=== PATIENT | male | born 1985 | race Two or more races ===

== ENCOUNTER 2021-05-10 06:23 | Emergency (ER) | payer SELFPAY ==
[~2021-05-10] VITALS: Ht 165.1 cm; Wt 83.0 kg
--- NOTE | 2021-05-10 06:36 | PHYS DOC ---
Past Medical History Past Medical History: Hypertension General Adult HPI: HPI: Patient is a 35 year old male who presents with several days of sore throat. He denies cough, dyspnea, headache, nausea vomiting. He had fever for 1 day, about 4 or 5 days ago, but this is since resolved. He was seen at an urgent care in [facility] yesterday and was prescribed what he believes is penicillin. He reports that his sore throat is not any better after 1 day of antibiotics. He has not taken anything for pain since yesterday. He is not vaccinated against Covid. He denies any known sick contacts. He is not having any difficulty with swallowing, eating or drinking. He is requesting a strep swab and a Covid swab at this time. Review of Systems: Review of Systems: Constitutional: 1 day of fever, since resolved. No chills. Eyes: Denies change in visual acuity. [] HENT: Sore throat. Denies rhinorrhea, sneezing or nasal congestion. Denies otalgia. Respiratory: Denies cough or shortness of breath. [] Cardiovascular: Denies chest pain or edema. [] GI: Denies abdominal pain, nausea, vomiting, denies bowel habit changes Musculoskeletal: Denies back pain or joint pain. [] Integument: Denies rash. [] Neurologic: Denies headache, focal weakness or sensory changes. [] Psychiatric: Denies depression or anxiety. [] Heart Score: C/O Chest Pain: No Risk Factors: Risk Factors: DM, Current or recent (<one month) smoker, HTN, HLP, family history of CAD, obesity. Risk Scores: Score 0 - 3: 2.5% MACE over next 6 weeks - Discharge Home Score 4 - 6: 20.3% MACE over next 6 weeks - Admit for Clinical Observation Score 7 - 10: 72.7% MACE over next 6 weeks - Early Invasive Strategies Physical Exam: PE: Constitutional: Well developed, well nourished, no acute distress, non-toxic appearance. [] HENT: Normocephalic, atraumatic, bilateral external ears normal, oropharynx is patent, clear, minimal erythema, no exudate, uvula midline, no edema or swelling, no facial or oral rash, no facial oral swelling, no drooling, no trismus, bilateral TMs are clear. He is drooling secretions well. Voice is clear. Eyes: PERRL, EOMI, conjunctiva normal, no discharge. [] Neck: Normal range of motion, no tenderness, supple, no stridor. [] Cardiovascular:Heart rate regular rhythm, no murmur [] Lungs & Thorax: Bilateral breath sounds clear to auscultation [] Skin: Warm, dry, no erythema, no rash. [] Back: Full range of motion Extremities: No limb deformity, no peripheral edema Neurologic: Alert and oriented X 3, normal motor function, ambulatory with a steady gait, speech clear and fluent Psychologic: Affect normal, judgement normal, mood normal. [] EKG: EKG: [] Radiology/Procedures: Radiology/Procedures: [] Course & Med Decision Making: Course & Med Decision Making Pertinent Labs and Imaging studies reviewed. (See chart for details) P.o. ibuprofen is given for pain. I discussed the findings, differential diagnosis and plan of care with the patient. He has significantly elevated blood pressure here, and he admits that he has been told multiple times that he has high blood pressure but he has never gone to see a primary care physician. I explained that he must see a primary care physician for follow-up. I explained the dangers of chronically uncontrolled hypertension, which may lead to long-term consequences and end organ damage. He is given outpatient resources for follow-up. No indication for further ED imaging, labs or invasive exams at this time. Return precautions are given. I explained his positive Covid assay results, and I instructed him to go home and self isolate. He is to notify all contacts, including those at work, and they are to quarantine. I discussed home care instructions for Covid infection. I told him he may stop taking the antibiotic he was prescribed yesterday, as this will not be a useful medication and treatment of a viral illness such as COVID-19. He feels comfortable with the plan of care. Strict return precautions are given. Cristel Disclaimer: Cristel Disclaimer: This electronic medical record was generated, in whole or in part, using a voice recognition dictation system. Departure Departure Impression: Primary Impression: COVID-19 virus infection Disposition: HOME / SELF CARE / HOMELESS Condition: STABLE Referrals: NO PCP (PCP) Patient Instructions: Sore Throat, [id number] Additional Instructions: Definicin Se le realiz la prueba de deteccin del COVID-19 o se le diagnostic dicha enfermedad. Es bubba infeccin ocasionada por un nuevo tipo de coronavirus. En la mayora de los casos, el COVID-19 provoca sntomas similares a los del resfriado. En algunas personas, puede ocasionar sntomas ms graves, fuentes problemas respiratorios. No existe un tratamiento para el virus COVID-19. El cuerpo elimina la infeccin con el tiempo. El cuidado personal ayuda a aliviar el malestar. Pasos que debe seguir 1. Cuidados personales Descanse cuando sea necesario. Los hbitos saludables pueden ayudarlo a sentirse mejor. Algunas medidas para lograr cambios incluyen lo siguiente: - Elija alimentos saludables, fuentes frutas y verduras. Harika abundante cantidad de agua hayley todo el da. - Duerma kodi por la noche. - Si fuma, intente no hacerlo. [place] ayudar a mejorar la respiracin. - Evite el alcohol. 2. Mantenga sanos a los dems El virus puede contagiarse a otras personas. Cada vez que estornuda o tose, se liberan gotitas. Las gotitas pueden entrar en la boca, la nariz o los ojos de las personas que se encuentran cerca de usted y ocasionar la infeccin. Para reducir las probabilidades de contagiar el virus COVID-19 a otros, tenga en cuenta lo siguiente: - Qudese en casa el tiempo que el mdico se lo indique. Es posible que deba quedarse en casa hasta que la enfermedad desaparezca. Salga nicamente para recibir atencin mdica o en harrison de urgencia. - Evite las reas pblicas, los eventos o el transporte pblico. No reanude las actividades laborales o escolares hasta que el mdico lo autorice. - Llame previamente si necesita asistir a un centro mdico. Avise que es posible que haya contrado COVID-19. [place] ayudar a que le indiquen adonde debe dirigirse. Aiyana pueden pedirle que use bubba mscara facial cuando vaya al consultorio. Si llama a los servicios de asistencia mdica de urgencias, avseles que es posible que haya contrado COVID-19. Mientras est en casa: - Evite el contacto directo con otras personas. Mantngase a bubba distancia aproximada de 2 metros. Si es posible, pasen la mayor parte del tiempo en husain separadas. - Use bubba mscara facial si estar en contacto directo con otras personas, por ejemplo, si compartir bubba habitacin o un vehculo. - Pida a alguien que limpie las superficies comunes de la casa. Limpie picaportes, mesadas y lavamanos con limpiadores domsticos todos los davis. - Al toser o estornudar, cbrase con un pauelo de papel. Despus de usarlo, deschelo de inmediato. Si no tiene un pauelo de papel, tosa o estornude en el pliegue del codo. - Lvese las nasir con frecuencia. Lvese las nasir despus de estornudar o toser. Lvese con agua y jabn hayley, al menos, 20 segundos. Si no dispone de agua y jabn, use un limpiador de nasir a base de alcohol. - No cocine para otros. Evite compartir objetos personales, fuentes tenedores, kelli haras o cepillos de dientes. - Mientras est enfermo, evite el contacto directo con las mascotas. No hay indicios de si el virus se transmite a las mascotas. Esta es bubba medida de seguridad que debe tenerse en cuenta hasta que se sepa ms acerca de dominga virus. El aislamiento puede ser frustrante. La interaccin social puede ayudar. Mantngase en contacto con amigos y familiares por telfono u otros medios tecnolgicos. Puede interactuar con otras personas en el hogar, greer mantenga bubba distancia lezama de aproximadamente 2 metros. Seguimiento Las pruebas para confirmar la presencia del COVID-19 pueden demorar algunos davis. Es posible que deba seguir los pasos mencionados anteriormente hasta que estn los resultados de las pruebas. Lo llamarn del consultorio mdico para saber si castanon habido algn cambio en gutierrez genie. Tambin le avisarn cuando pueda volver a estar cerca de otras personas. Problemas a los que debe estar atento Comunquese con el mdico si no se recupera segn lo previsto o si tiene pr oblemas fuentes los siguientes: - Dificultad para respirar - Dolor de pecho - Empeoramiento de los sntomas Si kyra que tiene bubba urgencia, llame a los servicios de asistencia mdica de urgencias de inmediato. As taken from [facility] [employer] TREY NOBLE DO May 10, 2021 06:36
[2021-05-10 06:44] VITALS: BP 194/100
[2021-05-10] MEDS ORDERED: IBUPROFEN 400 MG TABLET. PO ONE (06:45)
== END 2021-05-10 08:21 | disposition home or self-care (01) ==
LOC: ER 06:23
DX: U07.1 COVID-19 (principal)
CPT/HCPCS: 87070; 87426; 87880; 99283